=== PATIENT | male | born 1990 | race Two or more races ===

== ENCOUNTER 2022-04-14 16:48 | Emergency (ER) | payer SELFPAY ==
[~2022-04-14] VITALS: Ht 172.7 cm; Wt 85.0 kg
[2022-04-14 18:24] LABS: BASO # 0.1 x10^3/uL (0.0-0.2); BASO % 1 % (0-3); EOS # 0.1 x10^3/uL (0.0-0.7); EOS % 1 % (0-3); HEMATOCRIT 43.3 % (39.0-53.0); LYMPH # 2.3 x10^3/uL (1.0-4.8); LYMPH % 24 % (24-48); MEAN CORPUSCULAR HEMOGLOBIN 31 pg (25-35); MEAN CORPUSCULAR HGB CONC 35 g/dL (31-37); MEAN CORPUSCULAR VOLUME 90 fL (79-100); MONO # 0.7 x10^3/uL (0.0-1.1); MONO % 7 % (0-9); NEUT # 6.3 x10^3/uL (1.8-7.7); NEUT % 67 % (31-73); PLATELET COUNT 254 x10^3/uL (140-400); WHITE BLOOD COUNT 9.5 x10^3/uL (4.0-11.0)
--- NOTE | 2022-04-14 18:32 | PHYS DOC ---
Past Medical History Past Medical History: No Pertinent History Past Surgical History: No Surgical History Smoking Status: Never Smoker Alcohol Use: Heavy Drug Use: Marijuana General Adult EDM: Chief Complaint: RAPID HEART RATE HPI: HPI: Patient is a 31-year-old male who presents today with rapid heartbeat. Patient states that prior to arrival she had increased heartbeat, and he states he was having a little bit of chest pain associated with it and he came to the emergency department for further evaluation and management. Patient states that 10 days ago he started drinking heavily, he stopped drinking on Saturday, he said that he has been awake since Saturday and having insomnia since then, he states that yesterday he has tried smoking some marijuana to see if that would help him sleep and he said it did not work. Patient states he has also not slept in 3 days, he said that just prior to arrival he felt like his heart was racing and that he was having some chest pain associated with it. Patient states he does drink on a daily basis, and uses marijuana on a regular basis. Patient states he did have a couple episodes of nausea and vomiting yesterday but has not had any today. Review of Systems: Review of Systems: Constitutional: Denies fever or chills. [] Eyes: Denies change in visual acuity. [] HENT: Denies nasal congestion or sore throat. [] Respiratory: Denies cough or shortness of breath. [] Cardiovascular: Rapid heartbeat GI: Denies abdominal pain, nausea, vomiting, bloody stools or diarrhea. [] : Denies dysuria. [] Musculoskeletal: Denies back pain or joint pain. [] Integument: Denies rash. [] Neurologic: Denies headache, focal weakness or sensory changes. [] Endocrine: Denies polyuria or polydipsia. [] Lymphatic: Denies swollen glands. [] Psychiatric: Denies depression or anxiety. [] Heart Score: C/O Chest Pain: No Risk Factors: Risk Factors: DM, Current or recent (<one month) smoker, HTN, HLP, family history of CAD, obesity. Risk Scores: Score 0 - 3: 2.5% MACE over next 6 weeks - Discharge Home Score 4 - 6: 20.3% MACE over next 6 weeks - Admit for Clinical Observation Score 7 - 10: 72.7% MACE over next 6 weeks - Early Invasive Strategies Current Medications: Current Medications Medications (Trade) Dose Ordered Sig/Kim Start Time Stop Time Status Last Admin Dose Admin Sodium Chloride 1,000 ml @ 999 mls/hr 1X ONCE 04/14/22 18:00 04/14/22 19:00 UNV Physical Exam: PE: Constitutional: Well developed, well nourished, no acute distress, non-toxic appearance. [] HENT: Normocephalic, atraumatic, bilateral external ears normal, oropharynx moist, no oral exudates, nose normal. [] Eyes: PERRLA, EOMI, conjunctiva normal, no discharge. [] Neck: Normal range of motion, no tenderness, supple, no stridor. [] Cardiovascular:Heart rate regular rhythm, no murmur [] Lungs & Thorax: Bilateral breath sounds clear to auscultation [] Abdomen: Bowel sounds normal, soft, no tenderness, no masses, no pulsatile masses. [] Skin: Warm, dry, no erythema, no rash. [] Back: No tenderness, no CVA tenderness. [] Extremities: No tenderness, no cyanosis, no clubbing, ROM intact, no edema. [] Neurologic: Alert and oriented X 3, normal motor function, normal sensory function, no focal deficits noted. [] Psychologic: Affect normal, judgement normal, mood normal. [] Current Patient Data: Labs: Laboratory Tests Test 04/14/22 18:16 04/14/22 19:32 White Blood Count 9.5 x10^3/uL Red Blood Count 4.80 x10^6/uL Hemoglobin 15.0 g/dL Hematocrit 43.3 % Mean Corpuscular Volume 90 fL Mean Corpuscular Hemoglobin 31 pg Mean Corpuscular Hemoglobin Concent 35 g/dL Red Cell Distribution Width 13.0 % Platelet Count 254 x10^3/uL Neutrophils (%) (Auto) 67 % Lymphocytes (%) (Auto) 24 % Monocytes (%) (Auto) 7 % Eosinophils (%) (Auto) 1 % Basophils (%) (Auto) 1 % Neutrophils # (Auto) 6.3 x10^3/uL Lymphocytes # (Auto) 2.3 x10^3/uL Monocytes # (Auto) 0.7 x10^3/uL Eosinophils # (Auto) 0.1 x10^3/uL Basophils # (Auto) 0.1 x10^3/uL Sodium Level 141 mmol/L Potassium Level 4.8 mmol/L Chloride Level 103 mmol/L Carbon Dioxide Level 27 mmol/L Anion Gap 11 Blood Urea Nitrogen 15 mg/dL Creatinine 1.2 mg/dL Estimated GFR (Cockcroft-Gault) 71.6 BUN/Creatinine Ratio 13 Glucose Level 105 mg/dL Calcium Level 9.5 mg/dL Total Bilirubin 0.4 mg/dL Aspartate Amino Transf (AST/SGOT) 60 U/L Alanine Aminotransferase (ALT/SGPT) 93 U/L Alkaline Phosphatase 108 U/L Troponin I High Sensitivity 8 ng/L Total Protein 7.5 g/dL Albumin 3.9 g/dL Albumin/Globulin Ratio 1.1 Ethyl Alcohol Level < 10 mg/dL Urine Collection Type Unknown Urine Color (Auto) Light yellow Urine Turbidity Clear Urine pH (Auto) 5.0 Urine Specific [place] 1.020 Urine Protein (Auto) Negative mg/dL Urine Glucose (Auto)(UA) Negative mg/dL Urine Ketones (Auto) Negative mg/dL Urine Blood (Auto) Negative Urine Nitrite Negative Urine Bilirubin (Auto) Negative Urine Urobilinogen (Auto) Normal mg/dL Urine Leukocyte Esterase (Auto) Negative Urine RBC 0 /HPF Urine WBC 0 /HPF Urine Squamous Epithelial Cells Occ /LPF Urine Bacteria 0 /HPF Urine Mucus Slight /LPF Urine Opiates Screen Neg Urine Methadone Screen Neg Urine Barbiturates Neg Urine Phencyclidine Screen Neg Urine Amphetamine/Methamphetamine Neg Urine Benzodiazepines Screen Neg Urine Cocaine Screen Neg Urine Cannabinoids Screen Pos Urine Ethyl Alcohol Neg Current Medications Medications (Trade) Dose Ordered Sig/Kim Route PRN Reason Start Time Stop Time Status Last Admin Dose Admin Sodium Chloride 1,000 ml @ 999 mls/hr 1X ONCE IV 04/14/22 18:00 04/14/22 19:00 UNV 04/14/22 18:44 Sodium Chloride 1,000 ml @ 999 mls/hr 1X ONCE IV 04/14/22 20:15 04/14/22 21:15 UNV 04/14/22 20:34 Vital Signs: Vital Signs Date Time Temp Pulse Resp B/P (MAP) Pulse Ox O2 Delivery O2 Flow Rate FiO2 04/14/22 17:42 98.2 86 18 145/71 (95) 97 98.2 Vital Signs Date Time Temp Pulse Resp B/P (MAP) Pulse Ox O2 Delivery O2 Flow Rate FiO2 04/14/22 17:42 98.2 86 18 145/71 (95) 97 98.2 EKG: EKG: EKG done at [address] Roberts at 1901 showed sinus rhythm with no ectopy had a rate of 74 with a MO interval of 140 ms with a QTC of 387 ms no STEMI [] Radiology/Procedures: Radiology/Procedures: REASON: chest pain PROCEDURE: PORTABLE CHEST 1V Exam Date: 04/14/2022 6:00 PM XR CHEST 1V Indication: Reason: chest pain / Spl. Instructions: / History: . FINDINGS/ IMPRESSION: The cardiac silhouette and pulmonary vasculature are within normal limits. There is no focal consolidation, pleural effusion or pneumothorax. The visualized osseous structures are intact. Electronically signed by: Jordan Lira MD (04/14/2022 8:15 PM) [id number] [] Course & Med Decision Making: Course & Med Decision Making Pertinent Labs and Imaging studies reviewed. (See chart for details) 2044 I reviewed radiological results with patient did inform him they were all normal and no acute findings were found at this time. Patient states he does feel better after having 2 L of fluid here in the emergency department, patient states he is tired and is ready to go home. Patient's vital signs have been stable with no evidence of rapid heartbeat here in the emergency department. Patient is instructed to stop drinking and using illicit drugs because they are stimulants and may keep him awake for long periods of time. Patient verbalizes understanding of this and is agreeable with the plan of care. Patient is instructed to follow-up with his primary care physician or one of the clinics listed in his discharge instructions for further evaluation and management of his concerns. Patient is to return here to the emergency department should he have increased chest pain, shortness of breath, or rapid heartbeat again. Dragon Disclaimer: Dragon Disclaimer: This electronic medical record was generated, in whole or in part, using a voice recognition dictation system. Departure Departure Impression: Primary Impression: Rapid heart beat Additional Impression: Insomnia due to alcohol Disposition: HOME / SELF CARE / HOMELESS Condition: STABLE Referrals: NON,STAFF (PCP) Patient Instructions: Insomnia Additional Instructions: Hydroxyzine take 1 tablet at bedtime to help with sleep Stop drinking alcohol and using illicit drugs, they are bad for your health and they will continue to cause you to have insomnia Follow-up with your primary care physician or one of the listed clinics below to help you if you continue to have insomnia Return to the emergency department should you have increased chest pain, shortness of breath, or increase in heart rate. Jack [facility] [address] [place] [address] [facility] [address] [place] [address] [facility] [address] [place] [address] [facility] [address] [place] [address] [facility] [address] [place] [address] [address] [address] [place] [address] [address] [place] [address] [facility] [address] [place] [address] [facility] [address] [place] [address] [facility] [address] [place] [address] Scripts Hydroxyzine Hcl (HYDROXYZINE HCL) 25 Mg Tablet 1 TAB PO HS for insomnia, #5 TAB Prov: PATRICIA BOTELLO APRN 04/14/22 PATRICIA BOTELLO APRN April 14, 2022 18:32
[2022-04-14 18:37] LABS: CALCIUM 9.5 mg/dL (8.5-10.1); CREATININE 1.2 mg/dL (0.7-1.3); GFR 71.6; POTASSIUM 4.8 mmol/L (3.5-5.1)
[2022-04-14 18:43] LABS: ALBUMIN 3.9 g/dL (3.4-5.0); ALBUMIN/GLOBULIN RATIO 1.1 (1.0-1.7); TOTAL BILIRUBIN 0.4 mg/dL (0.2-1.0); TOTAL PROTEIN 7.5 g/dL (6.4-8.2)
[2022-04-14] MEDS: IV NORMAL SALINE 1000ML BAG 1,000 ML IV ONE ×2 (18:44→20:34)
[2022-04-14 19:51] LABS: BARBITURATES NEG (NEG); BENZODIAZEPINES NEG (NEG); CANNABINOIDS POS (NEG); COCAINE NEG (NEG); METHADONE NEG (NEG); OPIATES NEG (NEG); PHENCYCLIDINE NEG (NEG)
[2022-04-14 19:52] LABS: BACTERIA,URINE 0 /HPF (0-FEW); RBC,URINE 0 /HPF (0-2); WBC,URINE 0 /HPF (0-4)
--- NOTE | 2022-04-14 20:18 | RAD ---
Exam Date: 04/14/2022 6:00 PM XR CHEST 1V Indication: Reason: chest pain / Spl. Instructions: / History: . FINDINGS/ IMPRESSION: The cardiac silhouette and pulmonary vasculature are within normal limits. There is no focal consolidation, pleural effusion or pneumothorax. The visualized osseous structures are intact. Electronically signed by: Jordan Lira MD (04/14/2022 8:15 PM) [id number]
[2022-04-14 20:20] LABS: AMPHETAMINE/METHAMPHETAMINE NEG (NEG)
[2022-04-14] MEDS ORDERED: HYDR25TA PO (20:52)
[2022-04-14 21:25] VITALS: BP 137/88
--- NOTE | 2022-04-15 01:24 | EKG ---
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
== END 2022-04-14 21:29 | disposition home or self-care (01) ==
LOC: ER 16:48
DX: R00.0 Tachycardia, unspecified (principal); G47.00 Insomnia, unspecified; R07.89 Other chest pain; R06.02 Shortness of breath
CPT/HCPCS: 36415; 71045; 80053; 80307; 81001; 84484; 85025; 93005; 96360; 96361; 99285; G0480; J7030